=== PATIENT | male | born 1970 | race Caucasian/White ===

== ENCOUNTER 2018-09-15 02:21 | Emergency (ER) | payer OTHER ==
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
[2018-09-15] MEDS ORDERED: ETOMIDATE 20 MG/10 ML VIAL IVP ONE (02:30)
[2018-09-15] MEDS ORDERED: MORPHINE 4 MG/ML SDV IVP ONE (02:30)
[2018-09-15] MEDS ORDERED: ONDANSETRON 4 MG/2 ML VIAL ONE (03:09)
--- NOTE | 2018-09-15 03:21 | RADIOLOGY IMAGING REPORT ---
FACILITY: [facility] - [place] PATIENT NAME: Bhupinder Jauregui : 1970 MR: [id number] V: [id number] EXAM DATE: ORDERING PHYSICIAN: TONYA PARKER TECHNOLOGIST: Location: [facility] Patient: Bhupindre Jauregui : 1970 Visit/Account:[id number] Date of Sevice: 09/15/2018 LEFT WRIST: Indication: Injury. Technique: 3 views were obtained. Comparison: None available. Findings: There is a comminuted fracture of the distal radius with mild displacement and dorsal angul ation. The fracture extends to the articular surface. There is also a minimally displaced fracture of the ulnar styloid. The carpal bones appear intact, and there is no evidence of dislocation. There is uniform mineralization of the skeletal structures. Periarticular soft tissue swelling is evident. IMPRESSION: Acute fractures of the distal radius and ulna. Report Dictated By: Christopher Griffin MD at 09/15/2018 2:54 AM Report E-Signed By: Christopher Griffin MD at 09/15/2018 3:00 AM WSN:[id number]
[2018-09-15] MEDS ORDERED: OXYC-865 PO (03:35)
[2018-09-15 03:40] VITALS: BP 126/85
[2018-09-15] MEDS ORDERED: oxyCODONE/ACETAMIN 5/325MG TH 2 TAB/BOTTLE PO ONE (03:40)
--- NOTE | 2018-09-15 03:46 | RADIOLOGY IMAGING REPORT ---
FACILITY: [facility] PATIENT NAME: Bhupinder Jauregui : 1970 MR: [id number] V: [id number] EXAM DATE: ORDERING PHYSICIAN: TONYA PARKER TECHNOLOGIST: Location: [facility] - [place] Patient: Bhupinder Jauregui : 1970 Visit/Account:[id number] Date of Sevice: 09/15/2018 LEFT WRIST: Indication: Post-reduction. Technique: 3 views were obtained. Comparison: A prior study from earlier the same day. Findings: The alignment of the distal radial fracture is significantly improved. The ulnar fracture a ppears unchanged. The skeletal structures are otherwise unchanged. A cast has been applied. IMPRESSION: Improved alignment of the distal radial fracture. Report Dictated By: Christopher Griffin MD at 09/15/2018 3:39 AM Report E-Signed By: Christopher Griffin MD at 09/15/2018 3:41 AM WSN:[id number]
[2018-09-15] MEDS ORDERED: NS(*) 0.9% 1000 ML BAG 1,000 ML IV ONE (03:55)
== END 2018-09-15 03:46 | disposition home or self-care (01) ==
LOC: ER 02:32
DX: S52.592A Other fractures of lower end of left radius, initial encounter for closed fracture (principal); S52.602A Unspecified fracture of lower end of left ulna, initial encounter for closed fracture; W18.30XA Fall on same level, unspecified, initial encounter
CPT/HCPCS: 25605; 73110; 99152; 99284; A4565; J2270; J2405; J3490; J7030